=== PATIENT | male | born 2000 | race Caucasian/White ===

== ENCOUNTER 2025-07-05 05:08 | Emergency (ER) | payer MEDICAID ==
[~2025-07-05] VITALS: Ht 185.4 cm; Wt 110.8 kg
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
--- NOTE | 2025-07-05 08:07 | RADIOLOGY REPORT ---
CT CT HEAD Indication: fall head injury EXAM DATE: 07/05/2025 07:41 AM COMPARISON: None TECHNIQUE: CT of the head without intravenous contrast. RADIATION DOSE: CTDIvol: 66 mGy, DLP: 1253 mGy*cm FINDINGS: There is no intracranial hemorrhage. There is no extra-axial fluid, mass, mass effect or midline shif t. The ventricles are midline and normal in size. Basilar cisterns are patent. Love-white differentia tion is maintained. Small parietal scalp hematoma. The paranasal sinuses and mastoids are well-pneumatized. Imaged portion of the orbits are unremarkabl e. IMPRESSION: No intracranial hemorrhage or mass effect. Small parietal scalp hematoma.
[2025-07-05 08:59] VITALS: BP 95/59; PULSE 60; RESP 16; TEMP 98.1; O2SAT 98
== END 2025-07-05 09:02 | disposition home or self-care (01) ==
LOC: ER 05:09
DX: R51.9 Headache, unspecified (principal)
CPT/HCPCS: 70450; 99284